=== PATIENT | male | born 1985 | race Caucasian/White ===

== ENCOUNTER 2016-11-14 16:33 | Emergency (ER) | payer BC ==
[~2016-11-14] VITALS: Ht 188 cm; Wt 57.0 kg
[2016-11-14 19:30] VITALS: BP 119/82
== END 2016-11-14 19:49 | disposition home or self-care (01) ==
LOC: ER 18:21
DX: K22.4 Dyskinesia of esophagus (principal); Z98.890 Other specified postprocedural states
CPT/HCPCS: 71010; 93005; 99284